=== PATIENT | male | born 1980 | race Caucasian/White ===

== ENCOUNTER 2021-03-14 06:34 | Outpatient (REF) | payer BC, SELFPAY ==
[2021-03-14 11:16] LABS: MANUAL DIFF FLAG NO
[2021-03-14 11:22] LABS: Basophils Percent Auto 0.3 % (0-2); Eosinophils Absolute Auto 0.3 X10*3/uL (0.0-0.4); Eosinophils Percent Auto 4.6 % (0-4); Hematocrit 47.7 % (42-52); Hemoglobin 17.2 g/dl (14.0-18.0); Imm Gran Abs Auto 0.01 X10*3/uL (0.00-0.03); Imm Gran Pct Auto 0.2 % (0.0-0.4); Lymphocytes Absolute Auto 2.6 X10*3/uL (1.2-4.9); Lymphocytes Percent Auto 42.6 % (20-40); Mean Corpuscular HGB Conc 36.1 g/dl (31.0-36.0); Mean Corpuscular Hemoglobin 32.6 pg (27.0-33.0); Mean Corpuscular Volume 90.5 fL (80-98); Mean Platelet Volume 10.1 fL (9.4-12.4); Monocytes Absolute Auto 0.5 X10*3/uL (0.1-1.2); Monocytes Percent Auto 7.7 % (2-11); Neutrophils Absolute Auto 2.7 X10*3/uL (2.0-8.3); Neutrophils Percent Auto 44.6 % (45-73); Platelet Count 178 X10*3/uL (160-400); Red Blood Count 5.27 X10*6/uL (4.60-5.80); Red Cell Distribution Width 11.9 % (11.0-16.0); White Blood Count 6.1 X10*3/uL (4.8-10.8)
[2021-03-14 11:43] LABS: Alanine Aminotransferase 30 U/L (0-40); Albumin Level 4.6 g/dL (3.5-5.0); Alkaline Phosphatase 72 U/L (39-117); Anion Gap 16 (12-20); Aspartate Amino Transferase 29 U/L (5-37); Blood Urea Nitrogen 16 mg/dL (9-16); Calcium 9.3 mg/dL (8.4-10.2); Carbon Dioxide 24 mmol/L (22-29); Chloride 104 mmol/L (96-108); Cholesterol 170 mg/dL; Estimated Glomerular Filt Rate > 60; Glucose Fasting 74 mg/dL (60-99); HDL Cholesterol 42 mg/dL; LDL Cholesterol Calculated 99 mg/dl; Potassium 3.7 mmol/L (3.3-5.1); Sodium 140 mmol/L (135-145); Total Protein 6.9 g/dL (6.5-8.0); Triglycerides 145 mg/dL
[2021-03-14 11:54] LABS: Thyroid Stimulating Hormone 2.27 uIU/mL (0.32-4.0)
[2021-03-17 21:47] LABS: Lamotrigine Lamictal 9.2 mcg/mL (4.0-18.0)
== END 2021-03-14 06:35 | disposition home or self-care (01) ==
LOC: HO.HMGCLDS 06:34
PROVIDERS: PCP Internal Medicine; Visit Provider Internal Medicine
DX: Z00.00 Encounter for general adult medical examination without abnormal findings (principal); G40.909 Epilepsy, unspecified, not intractable, without status epilepticus; Z91.09 Other allergy status, other than to drugs and biological substances
CPT/HCPCS: 36415; 80053; 80061; 80175; 84443; 85025

== ENCOUNTER → 2021-09-15 09:44 | Outpatient (BNVA) | payer BC, SELFPAY | PROVIDERS: PCP Internal Medicine; Visit Provider Surgery ==

== ENCOUNTER 2021-11-07 12:20 | Outpatient (REF) | payer BC, SELFPAY ==
[2021-11-07 14:02] LABS: MANUAL DIFF FLAG NO
[2021-11-07 14:12] LABS: Basophils Percent Auto 0.3 % (0-2); Eosinophils Absolute Auto 0.2 X10*3/uL (0.0-0.4); Hematocrit 47.8 % (42.0-52.0); Imm Gran Abs Auto 0.01 X10*3/uL (0.00-0.03); Imm Gran Pct Auto 0.1 % (0.0-0.4); Lymphocytes Absolute Auto 2.2 X10*3/uL (1.2-4.9); Lymphocytes Percent Auto 31.4 % (20-40); Mean Corpuscular HGB Conc 35.6 g/dl (31.0-36.0); Mean Platelet Volume 10.2 fL (9.4-12.4); Monocytes Absolute Auto 0.4 X10*3/uL (0.1-1.2); Monocytes Percent Auto 5.5 % (2-11); Neutrophils Absolute Auto 4.1 x10*3/uL (2.0-8.3); Neutrophils Percent Auto 59.7 % (45-73); Platelet Count 178 X10*3/uL (160-400); Red Blood Count 5.31 X10*6/uL (4.60-5.80); Red Cell Distribution Width 11.9 % (11.0-16.0); White Blood Count 6.9 X10*3/uL (4.8-10.8)
[2021-11-07 14:25] LABS: Alanine Aminotransferase 32 U/L (0-40); Albumin Level 4.5 g/dL (3.5-5.0); Alkaline Phosphatase 69 U/L (39-117); Anion Gap 11 (12-20); Aspartate Amino Transferase 23 U/L (5-37); Bilirubin Total 0.7 mg/dL (0.0-1.0); Blood Urea Nitrogen 13 mg/dL (9-16); Calcium 9.5 mg/dL (8.4-10.2); Carbon Dioxide 29 mmol/L (22-29); Chloride 102 mmol/L (96-108); Estimated Glomerular Filt Rate > 60; Glucose Random 94 mg/dL (60-115); Sodium 138 mmol/L (135-145); Total Protein 7.1 g/dL (6.5-8.0)
[2021-11-08 06:26] LABS: Triiodothyronine T3 Free 3.5 pg/mL (2.3-4.2)
== END 2021-11-07 12:21 | disposition home or self-care (01) ==
LOC: HO.HMGCLDS 12:20
PROVIDERS: Visit Provider Internal Medicine
DX: I10 Essential (primary) hypertension (principal)
CPT/HCPCS: 36415; 80053; 84439; 84443; 84481; 85025

== ENCOUNTER → 2021-11-17 09:28 | Outpatient (REF) | payer BC, SELFPAY ==
--- NOTE | 2021-11-17 09:30 | ECG_ITS ---
Test Reason : HTN Blood Pressure : / mmHG Vent. Rate : 086 BPM Atrial Rate : 086 BPM P-R Int : 162 ms QRS Dur : 094 ms QT Int : 344 ms P-R-T Axes : 082 096 049 degrees QTc Int : 411 ms Normal sinus rhythm with sinus arrhythmia Rightward axis Borderline ECG No previous ECGs available Referred By: Stone Rodriguez Electronically Signed By:ANDREW BURNETT MD
--- NOTE | 2021-11-17 09:30 | CA_ITS ---
Transthoracic Echocardiogram Patient (Last, First, Middle): Saroj Regan, Gender: Male Date of : 1980 Age: 41 Procedure Date: 11/17/2021 Procedure Type: Transthoracic Echocardiogram Location: OP Height: 175.26 cm Weight: 78.02 kg BSA: 1.94 m2 Heart Rate: bpm BP: 142 / 90 mmHg Sleeve Wheel Maker: VH/OT Referring MD: Stone Rodriguez MD, DO Academic Services Professional: Dylan Barkley MD Symptoms: I10 HTN Study Quality: Good ECG Rhythm: Sinus Conclusions: - Normal study Findings Left Ventricle Normal left ventricular size, thickness, and systolic function. The visually estimated ejection fraction is between 60-65%. Spectral Doppler is indicative of a normal filling pattern. Right Ventricle Normal right ventricular cavity size and systolic function. Atria Both atria are normal in size. There is lipomatous hypertrophy of the interatrial septum. There is no evidence of interatrial shunt. Aortic Valve Normal aortic valve structure and function. There is no aortic valve stenosis. There is no aortic valve regurgitation. Mitral Valve Normal mitral valve structure and function. There is trace mitral valve regurgitation. There is no mitral valve stenosis. Pulmonic Valve The pulmonic valve is likely normal. Tricuspid Valve Normal tricuspid valve structure. There is trace tricuspid valve regurgitation. There is no evidence of pulmonary hypertension. Great Vessels All visible segments of the aorta are normal in size. The pulmonary artery was not well visualized. Venous The inferior vena cava is normal in size and collapses greater than 50% with inspiration. Pericardium/Pleural There is no evidence of pericardial effusion. Prior Study Comparison No prior study available for comparison. Measurements 2D Linear Measurements IVSd: 1.04 0.6-0.9/0.6-1.0 cm LVIDd: 4.62 3.9-5.3/4.2-5.9 cm LVIDd Index: 2.38 2.4-3.2/2.2-3.1 cm/m2 LVIDs: 2.67 2.0-3.6 cm LVPWd: 0.97 0.7-1.1 cm LA Diam: 3.70 2.7-3.8/3.0-4.0 cm LAIDs Index: 1.91 1.5-2.3 cm/m2 LV Mass: 200.54 67-162/88-224 g LV Mass Index: 103.37 43-95/49-115 g/m2 LVOT Diam: 2.00 3.0+(-)1.3 cm Mitral Valve MV Pk E: 0.74 MV PK A: 0.46 MV Decel Time: 124.00 E/A: 1.60 E'Lateral: 12.20 E'Medial: 9.57 E/E' Med: 7.70 E/E' Lat: 6.00 PHT: 37.00 MVA PHT: 5.95 Decel Nobles: 5.95 Aortic Valve AoV Pk Tuan: 1.35 AoV Mn Tuan: 0.91 AoV VTI: 0.27 AoV Pk Grad: 7.00 Aov Mn Grad: 4.00 ORI Cont.VTI: 2.80 LVOT LVOT Pk Tuan: 1.29 LVOT Mn Tuan: 0.80 LVOT VTI: 0.24 LVOT Pk Grad: 7.00 LVOT Mn Grad: 3.00 LVOT Diam: 2.00 LVOT Area: 3.14 Diastolic Function MV Pk E: 0.74 MV Pk A: 0.46 E/A: 1.60 E'Medial: 9.57 E/E' Med: 7.70 E' Laterial: 12.20 E/E' Lat: 6.00 Right Ventricle TAPSE (mm): 16.00 TVS' Tuan: 13.00 Tricuspid Valve TR Pk Tuan: 1.97 TR Pk Grad: 16.00 RA Press: 3.00 RVSP: 19.00 Great Vessels Aorta Ao Asc: 3.10 2.1-3.4 cm Pulmonary Valve PV Pk Tuan: 0.96 Peak PV Grad: 4.00 Updated in Other Vendor System with Status of Final Dylan Barkley MD electronically signed on 11/19/2021 10:39:53 AM with status of Final
== END ==
LOC: HO.CARD 09:28
PROVIDERS: PCP Internal Medicine; Visit Provider Internal Medicine
DX: I10 Essential (primary) hypertension (principal)
CPT/HCPCS: 93005; 93306

== ENCOUNTER 2022-05-01 13:56 | Outpatient (REF) | payer BC, SELFPAY ==
--- NOTE | ~2022-05-01 | XR_ITS ---
EXAMINATION: LEFT TIBIA-FIBULA AND LEFT ANKLE. CLINICAL INFORMATION: Stable left lower leg COMPARISON: None TECHNIQUE: 2 views left tibia and fibula and left ankle 3 views. FINDINGS: Left ankle: There is a no visible acute fracture, dislocation or subluxation. The ankle mortise and subtalar joints are normal. Left foot: There is no visible fracture or bony abnormality. The soft tissues are normal. XR/XR tibia fibula LT 2V IMPRESSION: Unremarkable left ankle and left foot exam.
--- NOTE | ~2022-05-01 | XR_ITS ---
EXAMINATION: LEFT TIBIA-FIBULA AND LEFT ANKLE. CLINICAL INFORMATION: Stable left lower leg COMPARISON: None TECHNIQUE: 2 views left tibia and fibula and left ankle 3 views. FINDINGS: Left ankle: There is a no visible acute fracture, dislocation or subluxation. The ankle mortise and subtalar joints are normal. Left foot: There is no visible fracture or bony abnormality. The soft tissues are normal. XR/XR ankle LT min 3V IMPRESSION: Unremarkable left ankle and left foot exam.
== END 2022-05-01 13:57 | disposition home or self-care (01) ==
LOC: HO.HMGCX 13:56
PROVIDERS: PCP Internal Medicine; Visit Provider Physician Assistant
DX: M79.662 Pain in left lower leg (principal); M25.472 Effusion, left ankle
CPT/HCPCS: 73590; 73610

== ENCOUNTER 2023-04-17 12:17 | Outpatient (REF) | payer BC, SELFPAY ==
--- NOTE | ~2023-04-17 | XR_ITS ---
EXAMINATION: XR FINGER, RIGHT CLINICAL INFORMATION: Injury of right little finger COMPARISON: None available. TECHNIQUE: Three views of the right small finger. FINDINGS: Mildly displaced intra-articular fracture involving the fifth distal phalanx along its proximal dorsal metadiaphysis. Overlying soft tissue swelling. Joint spaces and alignment are otherwise maintained. XR/XR finger RT min 2V IMPRESSION: 1. Mildly displaced intra-articular fracture involving the fifth distal phalanx along its proximal dorsal metadiaphysis. 2. Overlying soft tissue swelling.
== END 2023-04-17 12:18 | disposition home or self-care (01) ==
LOC: HO.HMGCX 12:17
PROVIDERS: PCP Internal Medicine; Visit Provider Internal Medicine
DX: S69.91XA Unspecified injury of right wrist, hand and finger(s), initial encounter (principal); X58.XXXA Exposure to other specified factors, initial encounter; Y93.9 Activity, unspecified; Y92.9 Unspecified place or not applicable; Y99.9 Unspecified external cause status
CPT/HCPCS: 73140

== ENCOUNTER 2024-01-07 10:22 | Outpatient (AMB) | payer BC, SELFPAY ==
--- NOTE | 2024-01-07 10:25 | MHC.OFFVIS ---
Vital Signs 01/07/24 10:35 Height 5 ft 9.25 in Weight 184 lb 8 oz BMI 27.0 BP 166/93 H Blood Pressure Location Lt brachial Position Sitting Pulse 77 Intake Visit Reasons: Paronychia Intake Note: Patient is seen in office for evaluation and treatment of paronychia. 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 He denies any pain, redness or discharge associated with the lesion. The lesion is located in the distal phalanx of the index finger. He subsequently developed a deformity in the nail bed. He presents today to have this lesion drained. He denies any fever, chills, or associated systemic symptoms. He denies any history of trauma to the right index finger. [facility] Surgical History History of surgical procedure on mouth Social History Alcohol intake: current Patient Tobacco Use Status: Never used Tobacco Review of Systems Const All systems reviewed & are unremarkable except as noted in HPI and below Denies chills, Denies fever(s), Denies headache(s), Denies poor appetite and Denies weakness ENT Denies headache(s) Card Denies chest pain, Denies irregular heart rhythm, Denies palpitations and Denies dyspnea Resp Denies cough, Denies excessive phlegm production and Denies dyspnea GI Denies abdominal pain, Denies bloating, Denies change in bowel habits, Denies constipation, Denies heartburn, Denies diarrhea, Denies nausea and Denies vomiting Denies difficulty urinating and Denies urinary frequency Musc Denies back pain, Denies muscle weakness and Denies numbness Skin/Breast Denies changing lesions and Denies unusual bruising Neuro Denies headache(s), Denies numbness, Denies paresthesias and Denies weakness Psych Denies anxiety and Denies depression Endo Denies palpitations Ladarius/Lymph Denies lymphadenopathy Physical Exam Const General: cooperative and no acute distress Nutritional Appearance: well nourished Orientation/consciousness: patient oriented x3 Limitations: no limitations HEENT Head: Yes normocephalic and Yes atraumatic Ears: hearing grossly normal bilaterally Resp Effort & Inspection: normal respiratory effort, no audible wheezes, no cough and no respiratory distress Cardio Jugular venous distension: no JVD GI Inspection: Yes normal to inspection Skin Other: Warm, dry, no rash. Right index finger with a 4 mm raised hard, nonmobile lesion in the distal phalanx as noted below. No redness or fluctuance is appreciated. This does not appear to be consistent with a paronychia but may actually be either a ganglion, nevus or warty lesion. Neoplasm is also a possibility. Neuro General: patient oriented x3 Extrem Other: Right index finger, distal phalanx. Note nail deformity: General: Yes no clubbing, cyanosis or edema Hand/finger images: 1. right hand site of skin lesion Assessment & Plan Assessment & Plan (1) Finger mass, right: Code(s): R22.31 - Localized swelling, mass and lump, right upper limb Category: Medical Plan 43-year-old male patient with a raised hard lesion of the right index finger not clearly a paronychia. I would not recommend incision and drainage of this lesion but rather would suggest further evaluation by hand surgery. The patient expressed understanding and agrees with the plan. A referral has been sent to Dr. Hayes for further evaluation. Orders: Referrals Hand Surgery Referral R22.31 - Localized swelling, mass and lump, right upper limb Coding Level of Care Code Est Pt Level 3 (64880) Diagnoses Finger mass, right R22.31
[2024-01-07 10:35] VITALS: BP 166/93; PULSE 77; BMI 27.0
== END 2024-01-07 10:43 | disposition home or self-care (01) ==
PROVIDERS: PCP Internal Medicine; Referring Provider Internal Medicine; Visit Provider Surgery
DX: R22.31 Localized swelling, mass and lump, right upper limb (principal)
CPT/HCPCS: 99213

== ENCOUNTER → 2024-01-07 10:22 | Outpatient (BNVA) | payer BC, SELFPAY | PROVIDERS: PCP Internal Medicine; Referring Provider Internal Medicine; Visit Provider Surgery ==

== ENCOUNTER 2024-02-12 10:00 | Outpatient (AMB) | payer BC, SELFPAY ==
--- NOTE | 2024-02-12 10:04 | MHC.OFFVIS ---
Intake Visit Reasons: Localized swelling,mass and lump,right upper limb Intake Note: Saroj 43 year old right hand dominant male presents today for a new patient visit for his right hand mass. Patient reports that he has had a lump on his right pointer finger for about 4 months now. It has gradually increased in size. This is not painful. Denies numbness and tingling. He was seen with Dr. Clayton who referred to hand surgery as he could not remove. Allergies penicillin G [PENICILLIN G] Allergy (Unknown, Verified 01/07/24 10:34) HIVES penicillin V Allergy (Unknown, Verified 01/07/24 10:34) urticaria HPI HPI Localized swelling,mass and lump,right upper limb: Details: Saroj is a 43 year old right hand dominant man who presents to discuss a right index finger mass. He complains of a mass on the back of his left index finger, near his nail. He says this has been present for ~4 months and has somewhat increased in size. He denies any pain, redness, or drainage. He denies any numbness, tingling, injury, or prior treatment. 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 He wants to know about work restrictions or time off if he has surgery. 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 Review of Systems Const All systems reviewed & are unremarkable except as noted in HPI and below Physical Exam Const General: cooperative, healthy appearing and no acute distress Orientation/consciousness: patient oriented x3 HEENT Head: Yes normocephalic and Yes atraumatic Eyes EOM: EOMs intact bilaterally Resp Effort & Inspection: normal respiratory effort and able to speak in complete sentences Cardio Jugular venous distension: no JVD Skin General skin exam: turgor normal Rashes: no rashes Neuro General: patient oriented x3 Extrem Other: Evaluation of Right Upper Extremity: The patient is alert, oriented, and in no acute distress Neuro: Median, Ulnar, Radial nerves motor and sensory intact and sensation is normal to the tips of all digits Vascular: Cap refill brisk ROM: He can make a fist and extend all his digits No locking or catching Skin: No lacerations or abrasions. General: No Ecchymosis. No Erythema or evidence of infection. There is a mass on the dorsal aspect of the index finger, just distal to the DIP joint. This measures ~3mm in diameter, and is just proximal to the eponychial fold. Ridging of the nail distal to the mass noted. This is most consistent with a mucous cyst. Psych Appearance: grossly normal Affect: normal affect Attitude: cooperative Assessment & Plan Assessment & Plan (1) Ganglion cyst of finger of right hand: Code(s): M67.441 - Ganglion, right hand Category: Medical Plan Assessment & Plan: 1. Right index finger mucous cyst Measuring ~3mm in diameter, just distal to the DIP joint I educated him about this condition I discussed operative and non-operative treatment options The patient would like to proceed with surgery The risks and benefits of operative treatment were discussed with the patient and the patient wishes to proceed with surgery. These risks include, but are not limited to risk of damage to blood vessels, nerves, tendons, infection, recurrence, incomplete relief of preoperative symptoms, persistent pain, possible need for further surgery and the risks associated with regional blocks and anesthesia. The plan is to take the patient to the operating room sometime in the next few weeks for the following procedures: 1. Right index finger excision of mass, under local All of the preoperative paperwork including the consent was reviewed today. All the patient's questions were answered. The patient understands that they will be contacted by our oral surgery physician soon to schedule this procedure. He would like this done at the end of the summer as he plays in a summer baseball league He denies Diabetes, blood thinners, asthma, heart, lung, kidney issues Dr. Hayes addendum: The patient was seen and evaluated with me, and the treatment plan formulated by me. I agree with the assessment and plan. Scribed for Katia Hayes MD by Ilya Gotti, medical reviewer, on 02/12/24 at 10:50 AM, EST. Coding Level of Care Code New Pt Level 4 (38156) Diagnoses Ganglion cyst of finger of right hand M67.441 Time Spent (min) 25
== END 2024-02-12 16:09 | disposition home or self-care (01) ==
PROVIDERS: PCP Internal Medicine; Visit Provider Orthopaedic Surgery
DX: M67.441 Ganglion, right hand (principal)
CPT/HCPCS: 99204

== ENCOUNTER → 2024-02-12 10:00 | Outpatient (BNVA) | payer BC, SELFPAY | PROVIDERS: PCP Internal Medicine; Visit Provider Orthopaedic Surgery ==

== ENCOUNTER 2024-02-18 08:09 | Outpatient (REF) | payer BC, SELFPAY ==
[2024-02-18 10:31] LABS: MANUAL DIFF FLAG NO
[2024-02-18 10:48] LABS: Basophils Percent Auto 0.4 % (0-2); Eosinophils Absolute Auto 0.2 X10*3/uL (0.0-0.4); Eosinophils Percent Auto 3.8 % (0-4); Hematocrit 46.5 % (42.0-52.0); Hemoglobin 16.8 g/dl (14.0-18.0); Imm Gran Abs Auto 0.04 X10*3/uL (0.00-0.03); Imm Gran Pct Auto 0.7 % (0.0-0.4); Lymphocytes Absolute Auto 1.9 X10*3/uL (1.2-4.9); Lymphocytes Percent Auto 34.2 % (20-40); Mean Corpuscular HGB Conc 36.1 g/dl (31.0-36.0); Mean Corpuscular Hemoglobin 32.4 pg (27.0-33.0); Mean Corpuscular Volume 89.8 fL (80.0-98.0); Monocytes Absolute Auto 0.4 X10*3/uL (0.1-1.2); Monocytes Percent Auto 7.8 % (2-11); Neutrophils Absolute Auto 2.9 x10*3/uL (2.0-8.3); Neutrophils Percent Auto 53.1 % (45-73); Platelet Count 186 X10*3/uL (160-400); Red Blood Count 5.18 X10*6/uL (4.60-5.80); White Blood Count 5.5 X10*3/uL (4.8-10.8)
[2024-02-18 11:19] LABS: Prostate Specific Antigen 1.85 ng/mL (<0.05-4.0)
[2024-02-18 11:28] LABS: Alanine Aminotransferase 31 U/L (0-40); Albumin Level 4.4 g/dL (3.5-5.0); Alkaline Phosphatase 76 U/L (39-117); Anion Gap 11 (12-20); Aspartate Amino Transferase 29 U/L (5-37); Bilirubin Total 0.7 mg/dL (0.0-1.0); Calcium 9.2 mg/dL (8.4-10.2); Carbon Dioxide 28 mmol/L (22-29); Chloride 104 mmol/L (96-108); Cholesterol 151 mg/dL (<200); Estimated Glomerular Filt Rate > 60; Glucose Fasting 93 mg/dL (60-99); HDL Cholesterol 42 mg/dL (>40); LDL Cholesterol Calculated 90 mg/dL (<100); Potassium 4.3 mmol/L (3.3-5.1); Sodium 139 mmol/L (135-145); Total Protein 7.2 g/dL (6.5-8.0); Triglycerides 99 mg/dL (<150)
[2024-02-18 11:41] LABS: Thyroid Stimulating Hormone 2.33 uIU/mL (0.32-4.0); Vitamin D 25-OH Total 68.9 ng/mL (>30)
[2024-02-18 11:50] LABS: Blood Urea Nitrogen 16 mg/dL (9-16)
== END 2024-02-18 08:10 | disposition home or self-care (01) ==
LOC: HO.HMGCLDS 08:09
PROVIDERS: PCP Internal Medicine; Visit Provider Internal Medicine
DX: Z00.00 Encounter for general adult medical examination without abnormal findings (principal); G40.909 Epilepsy, unspecified, not intractable, without status epilepticus; Z91.09 Other allergy status, other than to drugs and biological substances; Z12.5 Encounter for screening for malignant neoplasm of prostate
CPT/HCPCS: 36415; 80053; 80061; 82306; 84153; 84443; 85025

== ENCOUNTER 2024-06-09 08:37 | Outpatient (AMB) | payer BC, SELFPAY ==
--- NOTE | 2024-06-09 08:40 | A.OFFVIS_ITS ---
Vital Signs 06/09/24 08:42 Height 5 ft 9.25 in Weight 184 lb BMI 27.0 Intake Visit Reasons: Pre-Rt IF Cyst Exc, DOS 06/15/24 Intake Note: Saroj is a 44 yo right hand dominant male who presents today preoperatively for a right index finger cyst excision scheduled for 06/25/[address] Hayes. Consent signed in office today. Allergies penicillin G [PENICILLIN G] Allergy (Unknown, Verified 06/09/24 08:42) HIVES penicillin V Allergy (Unknown, Verified 06/09/24 08:42) urticaria HPI HPI Pre-Rt IF Cyst Exc, DOS 06/15/24: Details: Saroj is a 43 year old right hand dominant man who returns to discuss his right index finger ganglion cyst He complains of a mass on the back of his left index finger, near his nail. He says this has been present for ~7 months and says this increased in size this summer, but recently has shrunk in size in the last few weeks. He denies any pain, redness, or drainage. He denies any numbness, tingling, injury, or prior treatment. 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 He wants to know about work restrictions or time off if he has surgery. 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 This measures ~3mm in diameter, however this is now much softer and almost flat at this time, just proximal to the eponychial fold. Longitudinal Ridging of the nail distal to the mass noted. This is most consistent with a mucous cyst. Assessment & Plan Assessment & Plan (1) Ganglion cyst of finger of right hand: Code(s): M67.441 - Ganglion, right hand Category: Medical Plan Assessment & Plan: 1. Right index finger mucous cyst Measuring ~3mm in diameter, just distal to the DIP joint Causing ridging of the nail It has decreased in size over the last month. I educated him about this condition I discussed operative and non-operative treatment options That patient is unsure if he wants to proceed with surgery at this time, as he is busy in his personal & professional life at this time. 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 He is expecting a sometime in November. He would like to reschedule his surgery from 06/15/24 to sometime at the beginning of September. He is all for winter break in the month of September. If this continues to shrink he may cancel this appointment. He will follow up in late August to see how he is doing, and to discuss treatment options. If this continues to shrink then we may not proceed with surgery. Scribed for Katia Hayes MD by Ilya Gotti, medical communication specialist, on 06/09/24 at 8:50 AM, EST. Coding Level of Care Code Est Pt Level 3 (46094) Diagnoses Ganglion cyst of finger of right hand M67.441
[2024-06-09 08:42] VITALS: BMI 27.0
== END 2024-06-09 09:15 | disposition home or self-care (01) ==
PROVIDERS: PCP Internal Medicine; Visit Provider Orthopaedic Surgery
DX: M67.441 Ganglion, right hand (principal)
CPT/HCPCS: 99024

== ENCOUNTER → 2024-06-09 08:37 | Outpatient (BNVA) | payer BC, SELFPAY | PROVIDERS: PCP Internal Medicine; Visit Provider Orthopaedic Surgery ==

== ENCOUNTER 2024-08-18 13:38 | Outpatient (AMB) | payer BC, SELFPAY ==
--- NOTE | 2024-08-18 13:41 | A.OFFVIS_ITS ---
Intake Visit Reasons: Preop RT IF Cyst Exc 09/17/24 AR Intake Note: Saroj is a 44 year old right hand dominant male who presents to the office today for a Pre-op RT IF Cyst Exc 09/17/24 AR. Allergies penicillin G [PENICILLIN G] Allergy (Unknown, Verified 08/18/24 13:41) HIVES penicillin V Allergy (Unknown, Verified 08/18/24 13:41) urticaria HPI HPI Preop RT IF Cyst Exc 09/17/24 AR: Details: Patient is a 41 presents preoperative evaluation for right index finger mucous cyst excision, DOS scheduled for 09/17/2024. Today, the patient reports that he does still have a significant indentation in the finger nail of the right index finger, but states that the cyst itself does appear to have resolved temporarily. Patient reports no area of swelling on the right index finger at this time. Of note, patient does report that he is experiencing very significant pain in his right elbow, after he feels he may have aggravated it while weightlifting. The patient states that this exacerbated with pronation and supination range of motion of the right wrist. Denies any numbness or tingling right hand. No other acute complaints or concerns at this time. 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 Longitudinal Ridging of the nail distal to the mass noted. Right elbow exam Right elbow normal to inspection No erythema, edema, ecchymosis noted No lacerations, abrasions, open areas, evidence of infection Patient reports tenderness to palpation of the lateral epicondyle of the right elbow No tenderness to palpation of the medial epicondyle, olecranon process, radial head, or elsewhere in the right elbow Range of motion of the right elbow full and intact Pronation and supination full and intact Positive Cozen's test on the right Assessment & Plan Assessment & Plan (1) Lateral epicondylitis of right elbow: Code(s): M77.11 - Lateral epicondylitis, right elbow Category: Medical (2) Ganglion cyst of finger of right hand: Code(s): M67.441 - Ganglion, right hand Category: Medical Plan Assessment & Plan: 1. Right index finger mucous cyst Measuring ~3mm in diameter, just distal to the DIP joint at peak, currently resolved Causing ridging of the nail It has decreased in size over the last few months. I educated him about this condition I did informed the patient it was visit today that due to the fact that we can not clearly see where this mass is at this time, we can not perform operative intervention for removal, as there is no way to know if we got the entire cyst and it could lead to increased risk of recurrence' Patient states understanding of this Patient will follow-up with us when he feels the cyst has increased in size to the point where we will be able to perform operative intervention, sooner with any acute concerns 2. lateral epicondylitis of right elbow At this time, patient was referred for occupational therapy for treatment of his lateral epicondylitis of his right elbow Patient was amenable to this plan Patient was advised on conservative pain management measures, such as rest, ice, elevation, and [id number] pain medication as needed for pain management If patient does not experience relief after 6-8 weeks of occupational therapy, he can call our office for discussion of further treatment options, including but not limited to steroid injection Patient was amenable to this plan Scribed for Katia Hayes MD by Ilya Gotti medical device sales representative, on 06/09/24 at 8:50 AM, EST. Orders: Orders OT Evaluation and Treatment Today M77.11 - Lateral epicondylitis, right elbow Coding Level of Care Code Est Pt Level 3 (45377) Diagnoses Lateral epicondylitis of right elbow M77.11 Ganglion cyst of finger of right hand M67.441
--- OUTSIDE RECORDS SUMMARY | 2024-08-19 21:44 | XMS_ITS | Patient Health Record ---
Author Organization Stone Rodriguez DO, FACP Address [address], [place] [id number] Care Team Providers Care Director Consumer Affairs Name Role Phone Stone Rodriguez Primary Care Provider ALLERGIES Allergen (clinical drug ingredient) Drug/Non Drug Allergy documented on EMR Reaction Allergy Type Onset Date Status penicillin V Penicillin V Potassium urticaria Drug Allergy Active RESULTS Component Value Reference Range Notes Complete Blood Count Auto Di ff Reviewed date:02/18/2024 11:25:02 AM Interpretation:Normal Performing Lab:[facility], [address] [place] [phone] Notes/Report: White Blood Count 5.5 4.8-10.8 X10*3/uL Red Blood Count 5.18 4.60-5.80 X10*6/uL Hemoglobin 16.8 14.0-18.0 g/dl Hematocrit 46.5 42.0-52.0 % Mean Corpuscular Volume 89.8 80.0-98.0 fL Mean Corpuscular Hemoglobin 32.4 27.0-33.0 pg Mean Corpuscular HGB Conc 36.1 31.0-36.0 g/dl Red Cell Distribution Width 12.0 11.0-16.0 % Platelet Count 186 160-400 X10*3/uL Mean Platelet Volume 10.0 9.4-12.4 fL Neutrophils Percent Auto 53.1 45-73 % Imm Gran Pct Auto 0.7 0.0-0.4 % Lymphocytes Percent Auto 34.2 20-40 % Monocytes Percent Auto 7.8 2-11 % Eosinophils Percent Auto 3.8 0-4 % Basophils Percent Auto 0.4 0-2 % NRBC Pct Auto 0.0 0.0-0.2 /100WBC Neutrophils Absolute Auto 2.9 2.0-8.3 x10*3/u L Imm Gran Abs Auto 0.04 0.00-0.03 X10*3/uL Lymphocytes Absolute Auto 1.9 1.2-4.9 X10*3/u L Monocytes Absolute Auto 0.4 0.1-1.2 X10*3/uL Eosinophils Absolute Auto 0.2 0.0-0.4 X10*3/u L Basophils Absolute Auto 0.0 0.0-0.2 X10*3/uL NRBC Abs Auto 0.000 0.0-0.012 X10*3/uL Comprehensive Gillespie. Panel Fa st Reviewed date:02/18/2024 12:25:15 PM Interpretation:Normal Performing Lab:[facility], [address] [place] [phone] Notes/Report: Sodium 139 135-145 mmol/L Potassium 4.3 3.3-5.1 mmol/L Chloride 104 96-108 mmol/L Carbon Dioxide 28 22-29 mmol/L Anion Gap 11 12-20 Blood Urea Nitrogen 16 9-16 mg/dL Creatinine 1.16 0.5-1.4 mg/dL Estimated Glomerular Filt Rate > 60 NOTE: For -[place] individuals, multiply the result by 1.210. Chronic Kidney Disease: Estimated GFR < 60 mL/min/1.73m2 Severe Kidney Disease: Estimated GFR < 15 mL/min/1.73m2 Glucose Fasting 93 60-99 mg/dL Calcium 9.2 8.4-10.2 mg/dL Bilirubin Total 0.7 0.0-1.0 mg/dL Aspartate Amino Transferase 29 5-37 U/L Alanine Aminotransferase 31 0-40 U/L Total Protein 7.2 6.5-8.0 g/dL Albumin Level 4.4 3.5-5.0 g/dL Alkaline Phosphatase 76 39-117 U/L Lipid Panel Reviewed date:02/18/2024 12:25:15 PM Interpretation:Normal Performing Lab:[facility], [address] [place] [phone] Notes/Report: Triglycerides 99 <150 mg/dL Desirable Triglyceride: less than 150 mg/dL Borderline High Triglyceride 150-199 mg/dL High Triglyceride: 200-499 mg/dL Very High Triglyceride: greater than or equal to 5OO mg/dL Cholesterol 151 <200 mg/dL Desirable Cholesterol: less than 200 mg/dL Borderline High Cholesterol: 200-239 mg/dL High Cholesterol: greater than 239 mg/dL LDL Cholesterol Calculated 90 <100 mg/dL Desirable LDL: less than 100 mg/dL Near Optimal/Above Optimal LDL: 110-129 mg/dL Borderline High LDL: 130-159 mg/dL High LDL: 160-189 mg/dL Very High LDL: greater than or equal to 190 mg/dL HDL Cholesterol 42 >40 mg/dL Desirable HDL: greater than 40 mg/dL Note: This HDL assay may give artificially low results in patients with liver disease. Prostate Specific Antigen Reviewed date:02/18/2024 11:26:10 AM Interpretation:Normal Performing Lab:[facility], [address] [place] [phone] Notes/Report: Prostate Specific Antigen 1.85 <0.05-4.0 ng/mL PSA methodology: [employer] Alinity i Chemiluminescent Microparticle Immunoassay (CMIA) Vitamin D 25-OH Total Reviewed date:02/18/2024 12:25:15 PM Interpretation:Normal Performing Lab:[address] [phone] Notes/Report: Vitamin D 25-OH Total 68.9 >30 ng/mL Health Based Reference Values* < 20 ng/mL Deficient 20-30 ng/mL Insufficient > 30 ng/mL Sufficient *Edwige VILLAREAL. N Engl J Med. 2007;357:266-280 Care must be taken in interpreting Vitamin D results from different laboratories and methodologies. Published data demonstrated that results from patients undergoing hemodialysis may show a negative bias when tested with various automated 25-OH vitamin D assays when compared to LC-MS/MS. When testing samples from patients whose predominant form of Vitamin D is Vitamin D2, such as patients receiving Vitamin D2 supplementation, results that are subtherapeutic should be confirmed with another method such as LC-MS/MS. Thyroid Stimulating Hormone Reviewed date:02/18/2024 12:25:15 PM Interpretation:Normal Performing Lab:[facility], [address] [place] [phone] Notes/Report: Thyroid Stimulating Hormone 2.33 0.32-4.0 uIU/ mL TSH 3rd Generation ([facility]) REASON FOR REFERRAL Reason Paronychia Diagnosis 1 Encounter for genera l adult medical examination without abnormal findings (Z00.00) Referral Organization Stone Fernandez, [facility] Referring Provider First Name Stone Referring Provider Last Name Jennifer Referring Provider Speciality Internal M edicine Referred Provider Cameron Clayton Referred Provider Specialty Surgery General Notes Alison Rios 024 11:52:33 AM EDT > referral faxed; patient aware. Referral Priority Routine Referral Appointment Date 01/07/2024 MEDICATIONS Medication SIG (Take, Route, Fr equency, Duration) Notes Start Date End Date Status predniSONE 10 MG 4 tablets daily for 4 days, 3 for 3 days, 2 for 2 days, then 1 for 1 day Orally Once a day for 10 days 06/02/2024 Active ZyrTEC Allergy 10 MG 1 tablet Orally Once a day Active Multivitamin - 1 tablet Orally Once a day Active lamoTRIgine 25 MG 10 tablets Orally Twice a day Active IMMUNIZATIONS Vaccine Route Administration Date Status Comme nts TDaP IM Intramuscular 12/31/2018 Administered Influenza Quad IM Intramuscular 08/09/2020 Administered Influenza Quad Unknown 08/05/2019 Administered COVID-19 Moderna Vaccine Unknown 08/07/2021 Administere d COVID-19 Harlan (J/J) Unknown 12/15/2020 Administered COVID-19 Moderna Bivalent Unknown 06/11/2022 Administer ed Influenza Quad Unknown 06/11/2022 Administered SOCIAL HISTORY Tobacco Use: Social History Observation Description Date Details (start date - stop date) Never Smoker NA - NA Sex Assigned At : Social History Observation Description Sex Assigned At Unknown Tobacco Use/Smoking Question Answer Notes Patient is a nonsmoker Additional Findings: Tobacco Non-User Cu rrent non-smoker, currently using no form of tobacco Alcohol Screen Question Answer Notes Did you have a drink contain ing alcohol in the past year? Yes How often did you have a dri nk containing alcohol in the past year? 2 to 3 times a week (3 points) How many drinks did you have on a typical day when you were drinking in the past year? 1 or 2 drinks (0 point) How often did you have 6 or more drinks on one occasion in the past year? Never (0 point) Points 3 Interpretation Negative PROBLEMS Problem Type ICD Code Onset Dates Problem Status W/U Status Risk SNOMED Code Notes Problem Seizure disorder (G40.909) Active confirmed 793776661 Problem Environmental allergies (Z91.09) Active confirmed 538180621 Problem Left inguinal hernia (K40.90) Active confirmed 828987481 Problem Primary hypertension (I10) Active confirmed 47619635 VITAL SIGNS Blood pressure diastolic 76 mm Hg 12/11/2023 Height 69.25 in 12/11/2023 Blood pressure systolic 118 mm Hg 12/11/2023 Weight 187 lbs 12/11/2023 BMI 27.41 kg/m2 12/11/2023 Encounters Encounter Location Date Provider Diagnosis Stone Rodriguez DO, [facility] [address], [place] [phone] 12/11/2023 Stone Rodriguez Encounter for genera l adult medical examination without abnormal findings Z00.00 ; Seizure disorder G40.909 and Environmental allergies Z91.09 Stone Rodriguez DO, [facility] [address], [place] [phone] 06/02/2024 Stone Rodriguez DO, [facility] [address], [place] [phone] 11/02/2023 Stone Rodriguez DO, [address] [phone] 02/18/2024 Stone Rodriguez ASSESSMENTS Encounter Date Diagnosis Assessment Notes Treatment Notes Treatment Clinical Notes 12/11/2023 Encounter for genera l adult medical examination without abnormal findings (ICD-10 - Z00.00) 12/11/2023 Seizure disorder (ICD-10 - G40.909) 12/11/2023 Environmental allergies (ICD-10 - Z91.09) PLAN OF TREATMENT Next Appt Details Provider Name:Stone Leigh Miryam rubio, 12/30/2024 09:00:00 AM, [address] [place] [address], [phone], Insurance Providers Payer Name Payer Address Payer Phone Subscriber Number Group Number Insured Name Patient Relationship to Insured Coverage Start Date Coverage End Date [employer] [address] [place], [place] [id number] [phone] [id number] Saroj Regan Self - patient is the insured MEDICAL (GENERAL) HISTORY Medical History History ICD Code seizure disorder allergies; 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
--- OUTSIDE RECORDS SUMMARY | 2024-08-19 21:44 | XMS_ITS ---
Author Organization Stone Rodriguez DO, [facility] Address [address], [place] [id number] Care Team Providers Care Patient Services Specialist Name Role Phone Stone Rodriguez Primary Care Provider [phone] REASON FOR VISIT Blood Test Results Encounters Encounter Location Date Provider Diagnosis Stone Rodriguez DO, [facility] [address] [place], [place] [phone] 02/18/2024 Stone Rodriguez PLAN OF TREATMENT Next Appt Details Provider Name:Stone rubio, 12/30/2024 09:00:00 AM, [address] [place], [place], [phone],
--- OUTSIDE RECORDS SUMMARY | 2024-08-19 21:44 | XMS_ITS ---
Author Organization Stone Rodriguez DO, [facility] Address [address], [place] [phone] Care Team Providers Care Polisher And Buffer Name Role Phone Stone Rodriguez Primary Care Provider [phone] REASON FOR VISIT Message MEDICATIONS Medication SIG (Take, Route, Fr equency, Duration) Notes Start Date End Date Status predniSONE 10 MG 4 tablets daily for 4 days, 3 for 3 days, 2 for 2 days, then 1 for 1 day Orally Once a day for 10 days 06/02/2024 Active Encounters Encounter Location Date Provider Diagnosis Stone Rodriguez DO, [facility] [address] [place] [phone] 06/02/2024 Stone Rodriguez PLAN OF TREATMENT Medication Medication Name Sig Start Date Stop Date Notes predniSONE 10 MG 4 tablets daily for 4 days, 3 for 3 days, 2 for 2 days, then 1 for 1 day Orally Once a day for 10 days 06/02/2024 Next Appt Details Provider Name:Stone rubio, 12/30/2024 09:00:00 AM, [address] [place], [place], [phone],
--- OUTSIDE RECORDS SUMMARY | 2024-08-19 21:44 | XMS_ITS ---
Author Organization Stone Rodriguez DO, FACP Address [address], [place] [phone] Care Team Providers Care Flight Operations Manager Name Role Phone Stone Rodriguez Primary Care Provider [phone] ALLERGIES Allergen (clinical drug ingredient) Drug/Non Drug Allergy documented on EMR Reaction Allergy Type Onset Date Status penicillin V Penicillin V Potassium urticaria Drug Allergy Active REASON FOR REFERRAL Reason Paronychia Diagnosis 1 Encounter for genera l adult medical examination without abnormal findings (Z00.00) Referral Organization Stone Amaya O, FACP Referring Provider First Name Stone Referring Provider Last Name Jennifer Referring Provider Speciality Internal M edicine Referred Provider Cameron Clayton Referred Provider Specialty Surgery General Notes Alison Rios 024 11:52:33 AM EDT > referral faxed; patient aware. Referral Priority Routine Referral Appointment Date 01/07/2024 REASON FOR VISIT physical, annual visit, Follow up seizure disorder MEDICATIONS Medication SIG (Take, Route, Fr equency, Duration) Notes Start Date End Date Status ZyrTEC Allergy 10 MG 1 tablet Orally Once a day Active Multivitamin - 1 tablet Orally Once a day Active lamoTRIgine 25 MG 10 tablets Orally Twice a day Active SOCIAL HISTORY Tobacco Use: Social History Observation [...] Never (0 point) Points 3 Interpretation Negative VITAL SIGNS BMI 27.41 kg/m2 12/11/2023 Blood pressure systolic 118 mm Hg 12/11/19 24 Blood pressure diastolic 76 mm Hg 024 Height 69.25 in 12/11/2023 Weight 187 lbs 12/11/2023 Encounters Encounter Location Date Provider Diagnosis Stone Mcknightman DO, FACP [address], [place] [phone] 12/11/2023 Stone Rodriguez Encounter for genera l adult medical examination without abnormal findings Z00.00 ; Seizure disorder G40.909 and Environmental allergies Z91.09 ASSESSMENTS Encounter Date Diagnosis Assessment Notes Treatment Notes Treatment Clinical Notes 12/11/2023 Encounter for genera l adult medical examination without abnormal findings (ICD-10 - Z00.00) 12/11/2023 Seizure disorder (ICD-10 - G40.909) 12/11/2023 Environmental allergies (ICD-10 - Z91.09) PLAN OF TREATMENT Medication Medication Name Sig Start Date Stop Date Notes ZyrTEC Allergy 10 MG 1 tablet Orally Once a day Multivitamin - 1 tablet Orally Once a day lamoTRIgine 25 MG 10 tablets Orally Twice a day Referrals Referral Date Details 01/07/2024 01/07/2024, Rebeka arthur, Cameron Clayton Next Appt Details Follow Up: 1 Year, Reason: H &P Provider Name:Stone Leihg Miryam an, 12/30/2024 09:00:00 AM, [address], [place], [phone], Progress Notes * Examination Category Sub-Category Detail Notes General Examination GENERAL APPEARANCE: well dev eloped, well nourished, in no acute distress HEAD: normocephalic, atrau matic EYES: pupils equal, round, reactive to light and accommodation, sclera non-icteric NECK/THYROID: neck supple, full ra nge of motion, no cervical lymphadenopathy, no carotid bruit , thyroid normal HEART: regular rate and rhy thm, S1, S2 normal, no murmurs LUNGS: clear to auscultatio n bilaterally ABDOMEN: soft, nontender, non distended, bowel sounds present, normal NEUROLOGIC: nonfocal, motor stre ngth normal upper and lower extremities, sensory exam intact SKIN: warm and dry EXTREMITIES: no edema, paronychia present, finger PERIPHERAL PULSES: 2+ dorsalis pedis, 2 + posterior tibial MALE GENITOURINARY no penile lesions or discharge, no testicular mass, testes descended bilaterally PSYCH: alert, oriented, cog nitive function intact History and Physical Notes * HPI (History of Present Illness) Category Sub-Category Detail Notes Depression Screening PHQ-9 Little inte rest or pleasure in doing things: Not at all Feeling down, depressed, or hopeless: No t at all Trouble falling or staying asleep, or sl eeping too much: Not at all Feeling tired or having little energy: N ot at all Poor appetite or overeating: Not at all Feeling bad about yourself o r that you are a failure, or have let yourself or your family down: Not at all Trouble concentrating on thi ngs, such as reading the newspaper or watching television: Not at all Moving or speaking so slowly that other people could have noticed; or the opposite, being so fidgety or restless that you have been moving around a lot more than usual: Not at all Thoughts that you would be b cat off or of hurting yourself in some way: Not at all Total Score: 0 Interpretation and Intervention Depression Magan cope Findings: Negative Follow-Up for Depression: : Review of PH Q-9 found negative result; no follow-up needed Fall Risk Fall History Have you had two or more fal ls in the past year?: No Have you had any falls with injury in th e past year?: No Fall Risk Assessment:: No falls in the p ast year Communication Needs PCMH Communication Needs - PCM He aring Impairment?: No Vision Impairment?: No Cognitive Impairment?: No SDOH Questions SDOH Questions In the past year have you been worried about losing your housing?: No In the past year have you or any family members you live with been unable to get any of the following when it was really needed? Check all that apply:: None Consultation Request Notes Referral Date Referring Provider Referred Provider Not 12/11/2023 Stone Rodriugez, Cameron Jimenez
== END 2024-08-18 14:06 | disposition home or self-care (01) ==
PROVIDERS: PCP Internal Medicine
DX: M77.11 Lateral epicondylitis, right elbow (principal); M67.441 Ganglion, right hand
CPT/HCPCS: 99213

== ENCOUNTER 2024-12-30 09:03 | Outpatient (AMB) | payer BC, SELFPAY ==
[2024-12-30 09:04] VITALS: BP 142/90; PULSE 92; RESP 14; TEMP 36.6; O2SAT 98; BMI 27.2
--- NOTE | 2024-12-30 09:04 | MHC.PC.OV ---
Vital Signs 12/30/24 09:04 Height 5 ft 9 in Weight 184 lb BMI 27.2 BP 142/90 H Respiration 14 Pulse 92 Pulse Source Pulse Oximeter Temp 97.9 F Temp Source Temporal Artery Scan Pulse Oximetry (%) 98 Oxygen Delivery Method Room Air Intake Visit Reasons: physical Greenhouse Staff Required: No Accompanied by: Self / Same As Patient Allergies penicillin G [PENICILLIN G] Allergy (Unknown, Verified 12/30/24 09:28) HIVES penicillin V Allergy (Unknown, Verified 12/30/24 09:28) urticaria Medication List - Last Reconciled 12/30/24 by Moira Batres PA-C cetirizine (Zyrtec) 10 mg PO DAILY PRN lamotrigine 250 mg PO BID multivitamin 1 tab PO DAILY Tobacco use date assessed: 12/30/24 Dental Screening Dental Screen Date: 12/30/24 Did you have a dental visit in the last 12 months?: Yes Did you have a dental problem in the last 6 months where you did not have access to dental care?: No Was dental information given to patient?: Patient has dentist HPI physical HPI Details The patient is a 44-year-old male presenting for an annual physical examination. A history of hypertension is noted, which was first elevated during a stressful period in 2021. He reports hypertension may be influenced by stress and reduced physical activity, as he had to reduce running due to prior glute strain and the recent of his second child. The patient is on lamotrigine for epilepsy without recent seizure activity and uses Zyrtec daily for allergic rhinitis. Labs from last year, including renal and liver function, lipids, thyroid, PSA, and vitamin levels, were normal. Social History - with two children; one and one school-age child. - Engages in physical activity such as running and baseball, although a recent glute strain has limited activity levels. - Manages ongoing stress due to family and work commitments. - Reports a healthy diet and generally good sleep patterns prior to his . [facility] Medical History (Updated 12/30/24 @ 10:11 by Moira Batres PA-C) Establishing care with new doctor, encounter for Tennis elbow Squamous papilloma of soft palate Allergies Seizure disorder Overweight with body mass index (BMI) of 27 to 27.9 in adult Elevated blood pressure reading Annual physical exam Vasectomy evaluation Surgical History History of surgical procedure on mouth Family History Father BP (high blood pressure) Mother BP (high blood pressure) Social History Housing: House Alcohol intake: current Alcohol intake frequency: holidays/special occasions only Patient Tobacco Use Status: Never used Tobacco service: No Current occupational status: employed 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 1. Little interest or pleasure in doing things: not at all 2. Feeling down, depressed, or hopeless: not at all 3. Trouble falling or staying asleep, or sleeping too much: not at all 4. Feeling tired or having little energy: not at all 5. Poor appetite or overeating: not at all 6. Feeling bad about yourself - or that you are a failure or have let yourself or your family down: not at all 7. Trouble concentrating on things, such as reading the newspaper or watching television: not at all 8. Moving or speaking so slowly that other people could have noticed. Or the opposite - being so fidgety or restless that you have been moving around a lot more than usual: not at all 9. Thoughts that you would be better off or of hurting yourself in some way: not at all Total score: 0 Depression Screening Interpretation: Negative Depression Screening Done: Yes 11895 - PHQ-9 Billing: Yes Source: Developed by Drs. Stone Osborne, Heidi Pitt, Derrick Lyles and colleagues, with an educational corrie from [employer] Thrive Questionnaire Date Thrive assessed: 12/30/24 I am a: Patient What is your living situation today?: I have a steady place to live Within the past 12 months, did the food you bought not last and you didn't have the money to get more?: Never true Within the past 12 months, did you worry whether your food would run out before you got money to buy more?: Never true Do you have trouble paying for medicines?: No Do you have trouble getting transportation to medical appointments?: No Do you have trouble paying your heating and electricity bill?: No Do you have trouble taking care of your child, family member or friend?: No Do you have trouble with day-to-day activities such as bathing, preparing meals, shopping, managing finances, etc.?: No Are you currently unemployed and looking for a job?: No Are you interested in more education?: No Please select the resources that you would like help with: None THRIVE Score: 0 AUDIT C Alcohol Use Questionnaire (AUDIT-C) 1. How often do you have a drink containing alcohol?: Monthly or less 2. How many drinks containing alcohol do you have on a typical day when you are drinking?: 1 or 2 3. How often do you have six or more drinks on one occasion?: Never Total Score: 1 Score Reviewed/Action Taken: No MANA-7 AMB Questionnaire MANA-7 Date MANA - 7 assessed: 12/30/24 Feeling nervous, anxious, or on edge: 0 = Not at all Not being able to stop or control worryin = Not at all Worrying too much about different things: 0 = Not at all Trouble relaxin = Not at all Being so restless that it is hard to sit still: 0 = Not at all Becoming easily annoyed or irritable: 0 = Not at all Feeling afraid as if something awful might happen: 0 = Not at all Total MANA-7 score (0-4 normal; 5-9 mild; 10-14 moderate; 15-21 severe): 0 Source: Developed by Drs. Stone Osborne, Heidi Pitt, Derrick Lyles and colleagues, with an educational corrie from [employer]. MANA-7 Assessment Billing MANA-7 Assessment Tool: MANA-7 Assessment 51504 Review of Systems Const Details: - Cardiovascular: Denies dizziness, chest pain, shortness of breath, numbness. - Neurological: Denies seizures since starting lamotrigine. - Respiratory: Denies chronic cough. - Musculoskeletal: Reports recent history of glute strain and tennis elbow. - General: Reports fatigue due to sleep disturbances with . Eyes Denies dry eyes Physical exam (Primary Care) Vital Signs: Last Vital Signs Temp 97.9 F 12/30/24 09:04 Pulse 92 12/30/24 09:04 Resp 14 12/30/24 09:04 BP 142/90 H 12/30/24 09:04 Pulse Ox 98 12/30/24 09:04 Oxygen Delivery Method Room Air 12/30/24 09:04 Care Plan Goal for BP management: <130/90 BMI result Body Mass Index 27.2 BMI Assessment/Plan discussion: High BMI High, discussed plan: lifestyle, weight reduction, dietary, physical activity, alcohol moderation and other Tobacco/Smoking Status: Tobacco use Status Tobacco use date assessed 12/30/24 12/30/24 09:17 Patient Tobacco Use Status Never used Tobacco 12/30/24 09:17 PHQ-9: PHQ-9 Score PHQ-9: Total score 0 12/30/24 09:17 Depression Screening Interpretation: Negative Thrive Assessment: Date of Thrive Assessment Date Thrive assessed 12/30/24 12/30/24 09:17 Const Other: Appearance: Alert. Oriented X3. No acute distress. Head: Normal external exam. Normocephalic. Atraumatic. Eyes: Pupils are equal, round, and reactive to light. Extraocular movements intact. Conjunctiva and sclera normal. Eyelids normal. Ears: External auditory canal normal. Tympanic membranes normal. Throat: Pharynx normal. Uvula midline. Moist mucous membranes. Neck: Normal inspection. Neck supple. Full range of motion. No adenopathy. Thyroid Normal. No meningeal signs. No neck mass noted. Cardiovascular: Normal heart rate and rhythm. Heart sound normal. No murmurs noted. Pulses normal throughout. Heart rate was 92. Respiratory: No respiratory distress. Painless inspiration. Breath sounds normal. No wheezes/rales/rhonchi noted. Chest nontender. No accessory muscle usage noted or decreased air movement noted. Abdomen: Soft and nontender. No distention noted. No organomegaly noted. No visible injury noted. Back: No costovertebral angle tenderness. Full range of motion noted. Skin: Skin warm and dry. Normal skin color. Normal skin turgor. No rashes/lesions/lacerations noted. Extremities: No lower extremity edema. Extremities exhibit normal range of motion. Extremities nontender. Neuro: Oriented X 3. No motor deficit. No sensory deficit. Reflexes normal. Results Reviewed Results Reviewed: - Labs: Last year's CBC, kidney function, liver enzymes, cholesterol, vitamin D, and PSA were normal. Coding Level of Care Code Est Pt Level 4 (58330) Complex EM visit Add On G2211 Diagnoses Annual physical exam Z00.00 Vasectomy evaluation Z30.09 Overweight with body mass index (BMI) of 27 to 27.9 in adult E66.3; Z68.27 Elevated blood pressure reading R03.0 Allergies T78.40XA Seizure disorder G40.909 Tennis elbow M77.10 Establishing care with new doctor, encounter for Z76.89 Additional Codes PHQ-9 - 22640 - PHQ-9 Billing: Yes ([id number]) MANA-7 Assessment Billing - MANA-7 Assessment Tool: MANA-7 Assessment 54389 ([id number]) Assessment & Plan Assessment & Plan (1) Annual physical exam: Code(s): Z00.00 - Encounter for general adult medical examination without abnormal findings Category: Medical (2) Vasectomy evaluation: Code(s): Z30.09 - Encounter for other general counseling and advice on contraception Category: Medical Plan: Will refer to Urology for further evaluation for possible vasectomy. (3) Overweight with body mass index (BMI) of 27 to 27.9 in adult: Code(s): E66.3 - Overweight; Z68.27 - Body mass index [BMI] 27.0-27.9, adult Category: Medical Plan: Patient to continue improving his diet and exercise regimen to help with obesity and blood pressure. Condition is chronic and stable continue to monitor. (4) Elevated blood pressure reading: Code(s): R03.0 - Elevated blood-pressure reading, without diagnosis of hypertension Category: Medical Plan: The patient was advised to use a home blood pressure monitor regularly. Stress management and increased physical activity were discussed as possible interventions. Patient to return in 1 month. Condition is stable will continue to monitor. (5) Allergies: Code(s): T78.40XA - Allergy, unspecified, initial encounter Category: Medical Plan: Continues daily Zyrtec. Symptom control is satisfactory. Condition is chronic and stable continue to monitor. (6) Seizure disorder: Code(s): G40.909 - Epilepsy, unspecified, not intractable, without status epilepticus Category: Medical Plan: Continues on lamotrigine with good control. Follow-up with neurologist as scheduled. Condition is chronic and stable continue to monitor. (7) Tennis elbow: Code(s): M77.10 - Lateral epicondylitis, unspecified elbow Category: Medical Plan: Continue physical therapy. Current regimen is addressing symptoms. Condition is chronic and stable continue to monitor. (8) Establishing care with new doctor, encounter for: Code(s): Z76.89 - Persons encountering health services in other specified circumstances Category: Medical Plan Plan Patient was informed and verbally consented to the use of an ambient scribe for clinic note documentation during this visit. 1. Hypertension The patient was advised to use a home blood pressure monitor regularly. Stress management and increased physical activity were discussed as possible interventions. 2. Epilepsy Continues on lamotrigine with good control. Follow-up with neurologist as scheduled. 3. Allergic Rhinitis Continues daily Zyrtec. Symptom control is satisfactory. 4. Tennis Elbow Continue physical therapy. Current regimen is addressing symptoms. I reviewed with the patient the diagnosis of hypertension, discussing the potential contributing factors, including stress and lack of exercise. We focused on the importance of accurate and consistent home monitoring of blood pressure with a validated cuff. I advised him to return in one month with his blood pressure log for further evaluation. Management of his epilepsy with lamotrigine was noted to be effective and should be continued as prescribed by his neurologist. I reinforced the effectiveness of his current treatment regimen for allergic rhinitis and summarized the physical therapy being successful for tennis elbow. We discussed him potentially consulting urology for vasectomy, emphasizing the need for further discussion with a urologist to address his family planning concerns. Follow-up was suggested in alignment with his personal schedule and any symptom changes. Orders: Orders Vitamin D 25-OH Total Today Z00.00 - Encounter for general adult medical examination without abnormal findings Lipid Panel Today Z00.00 - Encounter for general adult medical examination without abnormal findings Liver Panel Today Z00.00 - Encounter for general adult medical examination without abnormal findings Hemoglobin A1c Today Z00.00 - Encounter for general adult medical examination without abnormal findings Complete Blood Count Auto Diff Today Z00.00 - Encounter for general adult medical examination without abnormal findings Comprehensive [place]. Panel Fast Today Z00.00 - Encounter for general adult medical examination without abnormal findings TSH reflex Free T4 Today Z00.00 - Encounter for general adult medical examination without abnormal findings PSA,Total (Free>4and<10) Today Z00.00 - Encounter for general adult medical examination without abnormal findings Referrals Urology Referral Z30.09 - Encounter for other general counseling and advice on contraception Patient Instructions: - Monitor your blood pressure at home every morning. Write down the numbers. - Continue taking your epilepsy medication as prescribed. - Keep taking Zyrtec daily for allergies. - Attend physical therapy sessions to manage tennis elbow. - Exercise regularly and manage stress. - Return for follow-up with blood pressure log in one month. - Schedule a consultation with urology regarding vasectomy. - Call or visit if you have dizziness, severe headaches, or blood pressure significantly higher than usual.
== END 2024-12-30 09:45 | disposition home or self-care (01) ==
LOC: HO.HMCSH 09:03
PROVIDERS: PCP Internal Medicine; Visit Provider Physician Assistant Medical
DX: Z00.00 Encounter for general adult medical examination without abnormal findings (principal); Z30.09 Encounter for other general counseling and advice on contraception; E66.3 Overweight; Z68.27 Body mass index [BMI] 27.0-27.9, adult; R03.0 Elevated blood-pressure reading, without diagnosis of hypertension; T78.40XA Allergy, unspecified, initial encounter; G40.909 Epilepsy, unspecified, not intractable, without status epilepticus; M77.10 Lateral epicondylitis, unspecified elbow; Z76.89 Persons encountering health services in other specified circumstances

== ENCOUNTER → 2024-12-30 09:03 | Outpatient (BNVA) | payer BC, SELFPAY | PROVIDERS: PCP Internal Medicine; Visit Provider Physician Assistant Medical | DX: Z00.00 Encounter for general adult medical examination without abnormal findings (principal); E66.3 Overweight; Z68.27 Body mass index [BMI] 27.0-27.9, adult; R03.0 Elevated blood-pressure reading, without diagnosis of hypertension; T78.40XA Allergy, unspecified, initial encounter; G40.909 Epilepsy, unspecified, not intractable, without status epilepticus; M77.10 Lateral epicondylitis, unspecified elbow | CPT/HCPCS: 96127 ==

== ENCOUNTER 2025-03-05 11:13 | Outpatient (AMB) | payer BC, SELFPAY ==
--- NOTE | 2025-03-05 11:15 | A.OFFVIS_ITS ---
Intake Visit Reasons: vasectomy consult Intake Note: New Patient is present for VASECTOMY CONSULT Urology Rx:FINASTERIDE Blood Thinners:NONE Allergies penicillin G (PENICILLIN G) Allergy (Unknown, Verified 03/05/25 11:15) HIVES penicillin V Allergy (Unknown, Verified 03/05/25 11:15) urticaria HPI Comments Details: Saroj is a very pleasant male. He is a patient of Dr. Cano. He is seen for the following urologic condition - anxiety about health - Vasectomy evaluation Vasectomy evaluation The patient presents for vasectomy consultation. He is currently He has fathered - 2 child, with a single partner. The youngest child is - three-month. His partner is aware and permissive for a vasectomy Current form of control is previously hormonal currently barrier. 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 Patient education has been provided via AUA video, via printed information, risks of failure, recovery time, bruising and potential pain syndrome have been stressed Discussion today focused on the presence of vasectomy and the risks, benefits and alternatives that are available. Vasectomy as intended as a permanent form of control. Printed information and literature was provided to the patient. Overall there is a one in 2500 failure rate. This can occur at any time after vasectomy. Risks were discussed highlighting hematoma, spermatocele, epididymal congestion, development of sperm antibodies, and development of chronic pain estimated between 1-5%. The procedure was reviewed in detail. Anatomical diagrams of the male genitalia were used to explain the location of the vas deferens. The vas deferens will be transected, the proximal end will be cauterized, a metal clip would be applied to separate the 2 vas deferens ends. It was explained the procedure will be done in the office and takes approximately 10-15 minutes. Less common problems that arise with vasectomy include hematoma, bleeding, allergic reaction to anesthetic, epididymal infection, epididymal congestion, scrotal discomfort, spermatic leak, spermatic granuloma and the possibility of antisperm antibodies. He understands these risks and wishes to proceed. Consent was signed at the office today. He also understands that it takes 12 weeks for sperm to fully clear the system. He will need to provide a semen sample at 12 weeks and if this is not clear a 2nd sample at 16 weeks. Medical clearance to stop using protection will only be provided if he satisfies published criteria for sperm clearance. [facility] Medical History (Updated 03/05/25 @ 17:06 by Mike Church MD) Establishing care with new doctor, encounter for Tennis elbow Squamous papilloma of soft palate Allergies Seizure disorder Overweight with body mass index (BMI) of 27 to 27.9 in adult Elevated blood pressure reading Annual physical exam Vasectomy evaluation Surgical History History of surgical procedure on mouth Family History Father BP (high blood pressure) Mother BP (high blood pressure) Social History Housing: House Alcohol intake: current Alcohol intake frequency: holidays/special occasions only Patient Tobacco Use Status: Never used Tobacco service: No Current occupational status: employed 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 Cognitive needs: No Hearing needs: No Vision needs: No Review of Systems Const Denies chills and Denies fever(s) Card Reports no additional complaints and Denies syncope Resp Denies cough GI Denies abdominal pain and Denies heartburn Reports as per HPI and Denies change in libido Neuro Denies syncope Psych Denies change in libido Endo Denies change in libido Physical Exam Const General: cooperative, healthy appearing, comfortable and no acute distress Orientation/consciousness: patient oriented x3 HEENT Face and sinus: Yes normal facial exam Mouth: moist mucous membranes Neck Neck: Yes normal visual inspection, Yes full ROM and Yes trachea midline Chest Chest palpation & inspection: normal inspection of the chest Resp Effort & Inspection: normal respiratory effort, able to speak in complete sentences and no respiratory distress GI Inspection: Yes normal to inspection Back/Spine/Pelvis Cervical Spine: normal cervical lordosis Thoracic/Lumbar Spine: thoracic and lumbar spine normal to inspection Skin General skin exam: no rashes or lesions noted Neuro General: patient oriented x3, gait normal, tone normal and moves all extremities Extrem General: Yes normal to inspection and Yes capillary refill normal Assessment & Plan Assessment & Plan (1) Anxiety about health: Code(s): R45.89 - Other symptoms and signs involving emotional state Category: Medical Plan Schedule vasectomy Medications: New diazepam Take medication after arrival at office 2 mg PO BID PRN 2 tabs 0RF anxiety 1 day R45.89 - Other symptoms and signs involving emotional state, Z30.09 - Encounter for other general counseling and advice on contraception tramadol 50 mg PO Q8H PRN 7 tabs 0RF pain N43.3 - Hydrocele, unspecified, Z30.09 - Encounter for other general counseling and advice on contraception Patient Instructions: This note is constructed using voice recognition software. While every effort has been made to ensure accuracy state historical society director errors may have been included. Imaging studies, laboratory and physical exam results were discussed and reviewed in detail. No major barriers to patient understanding were identified. An opportunity to ask questions regarding the treatment plan was provided. All questions were answered. The patient expressed understanding and agreement with the above treatment plan. The patient is aware they should contact our office by phone for worsening of their current condition or the appearance of new urologic symptoms. Compliance is encouraged with any medications and followup testing that is ordered. It is a privilege to participate in the urologic care of your patient. If you have any questions or concerns regarding treatment for the above conditions, or other urologic issues, please do not hesitate to contact me. The office telephone contact is [phone]. Sincerely, Dr Mike Church MD, [facility] - Urology Compassionate Specialist Care for the Genitourinary System Coding Level of Care Code New Pt Level 4 (15369) Diagnoses Anxiety about health R45.89
== END 2025-03-05 12:02 | disposition home or self-care (01) ==
LOC: HO.HUSH 11:14
PROVIDERS: PCP Internal Medicine; Visit Provider Urology
DX: R45.89 Other symptoms and signs involving emotional state (principal)
CPT/HCPCS: 99204

== ENCOUNTER 2025-07-02 09:08 | Outpatient (REF) | payer BC, SELFPAY ==
--- OUTSIDE RECORDS SUMMARY | 2025-07-02 09:58 | XMS_ITS | Clinical Summary ---
Author Organization [facility] Address [address] [place] [id number] Phone Care Team Providers Care Senior Financial Reporting Accountant Name Role Phone Tete Green MD Unavailable [phone] Keshawn Zavala MD Primary Care Provid er Medications albuterol (PROAIR HFA) 90 mcg/actuation inhaler Inhale 2 puffs into the lungs every 4 (four) hours as needed. 09/22/2015 Active lamoTRIgine (LAMICTAL) 200 MG tablet Orally Twice a day Active CETIRIZINE HCL (ZYRTEC ORAL) 1 tablet as needed Orally Once a day Active Active Problems No known active problems Social History Tobacco Use Types Packs/Day Years Used Date Smoking Tobacco: Never Assessed Education Answer Date Recorded Are you interested in more education? Not on joe e 01/04/2023 Are you concerned about learning? Not on file 01/04/2023 No 01/04/2023 No 01/04/2023 Digital Access Answer Date Recorded No 02/01/2023 No 02/01/2023 Reliable internet access at home? Not on file 02/01/2023 Device with a working camera? Not on file Sex and Gender Information Value Date Recorded Sex Assigned at Male 09/27/2023 12:13 PM EST Legal Sex Male 9:21 PM EDT Gender Identity Male 09/27/2023 12:13 PM EST Sexual Orientation Straight 09/27/2023 12 :13 PM EST Last Filed Vital Signs Vital Sign Reading Time Taken Comments Blood Pressure 138/102 05/24/2017 3:13 AM EDT Pulse 103 05/24/2017 3:13 AM EDT Temperature 36.6 C (97.9 F) 05/24/2017 3:13 AM EDT Respiratory Rate - - Oxygen Saturation - - Inhaled Oxygen Concentration - - Weight 81.9 kg (180 lb 9.6 oz) 05/24/2017 3:13 A M EDT Height 175.3 cm (5' 9 ) 05/24/2017 3:13 AM EDT Body Mass Index 26.67 05/24/2017 3:13 AM EDT Plan of Treatment Health Maintenance Due Date Last Done Comments LIPID PANEL 1981 DEPRESSION SCREENING 1993 SMOKING Hx and SMOKELESS TOBACCO SCREENING 1994 HEPATITIS C SCREENING 1999 HIV ONE-TIME SCREENING (18-6 5 YEARS) 1999 INFLUENZA VACCINE (#1) 2025 , 08/09/2020, 08/05/2019 COVID-19 VACCINE (2024-2 6 season) 2025 06/11/2022, 08/07/2021, 12/15/2020 Adult Td,Tdap Booster 12/31/2028 12/31/2018 HEPATITIS A VACCINES Aged Out No long er eligible based on patient's age to complete this topic HIB VACCINES Aged Out No longer eligi ble based on patient's age to complete this topic MENINGOCOCCAL VACCINES (ACWY) Aged Out No longer eligible based on patient's age to complete this topic MENINGOCOCCAL VACCINES (B) Aged Out N o longer eligible based on patient's age to complete this topic PNEUMOCOCCAL VACCINES (0-49 years) Aged Out No longer eligible b ased on patient's age to complete this topic Medical Devices Not on file Insurance [facility] [place] [facility] Care Teams Senior Financial Reporting Accountant Relationship Specialty Start Date End Date Keshawn Zavala MD [address] [place] [id number] PCP - General Internal Medicine 10/05/24 Tete Green MD [address] [place] [address], [address] [place] [address] [email or web address] Historical LMR Provider 06/25/17 Additional Source Comments The information contained in this document represents components of the legal health record. It is not the complete legal health record.[facility]
[2025-07-02 13:20] LABS: MANUAL DIFF FLAG NO
[2025-07-02 13:38] LABS: Hematocrit 45.7 % (42.0-52.0); Hemoglobin 16.2 g/dl (14.0-18.0); Imm Gran Abs Auto 0.01 X10*3/uL (0.00-0.03); Imm Gran Pct Auto 0.2 % (0.0-0.4); Lymphocytes Absolute Auto 2.5 X10*3/uL (1.2-4.9); Mean Corpuscular HGB Conc 35.4 g/dl (31.0-36.0); Mean Corpuscular Hemoglobin 31.8 pg (27.0-33.0); Mean Corpuscular Volume 89.6 fL (80.0-98.0); NRBC Abs Auto 0.000 X10*3/uL (0.0-0.012); NRBC Pct Auto 0.0 /100WBC (0.0-0.2); Platelet Count 182 X10*3/uL (160-400); Red Blood Count 5.10 X10*6/uL (4.60-5.80); White Blood Count 5.8 X10*3/uL (4.8-10.8)
[2025-07-02 14:20] LABS: Alanine Aminotransferase 36 U/L (0-40); Albumin Level 4.6 g/dL (3.5-5.0); Alkaline Phosphatase 64 U/L (39-117); Anion Gap 12 (12-20); Aspartate Amino Transferase 28 U/L (5-37); Blood Urea Nitrogen 18 mg/dL (9-16); Calcium 8.9 mg/dL (8.4-10.2); Carbon Dioxide 28 mmol/L (22-29); Chloride 105 mmol/L (96-108); Cholesterol 167 mg/dL (<200); Estimated Glomerular Filt Rate > 60; HDL Cholesterol 42 mg/dL (>40); Potassium 4.7 mmol/L (3.3-5.1); Sodium 140 mmol/L (135-145); Total Protein 7.1 g/dL (6.5-8.0); Triglycerides 90 mg/dL (<150)
[2025-07-02 15:00] LABS: PSA,Total (Free>4and<10) 1.22 ng/mL (0.00-4.00)
== END 2025-07-02 09:09 | disposition home or self-care (01) ==
LOC: HO.HMGCLDS 09:08
PROVIDERS: PCP Internal Medicine; Visit Provider Physician Assistant Medical
DX: Z00.00 Encounter for general adult medical examination without abnormal findings (principal); Z12.5 Encounter for screening for malignant neoplasm of prostate; Z13.6 Encounter for screening for cardiovascular disorders; Z13.1 Encounter for screening for diabetes mellitus; Z13.29 Encounter for screening for other suspected endocrine disorder; Z13.21 Encounter for screening for nutritional disorder
CPT/HCPCS: 36415; 80053; 80061; 80076; 82248; 82306; 83036; 84153; 84443; 85025

== ENCOUNTER 2025-08-11 14:55 | Outpatient (AMB) | payer BC, SELFPAY ==
--- NOTE | 2025-08-11 15:08 | A.OFFVIS_ITS ---
Intake Visit Reasons: vasectomy Intake Note: Reason for Visit: Vasectomy Urology Meds: None Blood Thinners: None Labs: None Imaging:None Last PVR: None [employer] Operation Required: No Accompanied by: Self / Same As Patient Allergies penicillin G (PENICILLIN G) Allergy (Unknown, Verified 08/11/25 15:13) HIVES penicillin V Allergy (Unknown, Verified 08/11/25 15:13) urticaria HPI Comments Details: Saroj is a very pleasant male. He is a patient of Dr. Cano. He is seen for the following urologic condition - anxiety about health - Vasectomy procedure Vasectomy procedure The patient presents for vasectomy procedure. He is currently He has fathered - 2 child, with a single partner. The youngest child is - three-month. His partner is aware and permissive for a vasectomy Current form of control is previously hormonal currently barrier. 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 [facility] Medical History Establishing care with new doctor, encounter for Tennis elbow Squamous papilloma of soft palate Allergies Seizure disorder Overweight with body mass index (BMI) of 27 to 27.9 in adult Elevated blood pressure reading Annual physical exam Vasectomy evaluation Surgical History History of surgical procedure on mouth Family History Father BP (high blood pressure) Mother BP (high blood pressure) Social History Housing: House Alcohol intake: current Alcohol intake frequency: holidays/special occasions only Patient Tobacco Use Status: Never used Tobacco service: No Current occupational status: employed 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 Cognitive needs: No Hearing needs: No Vision needs: No Review of Systems Const Denies chills and Denies fever(s) Card Reports no additional complaints and Denies syncope Resp Denies cough GI Denies abdominal pain and Denies heartburn Reports as per HPI and Denies change in libido Neuro Denies syncope Psych Denies change in libido Endo Denies change in libido Physical Exam Const General: cooperative, healthy appearing, comfortable and no acute distress Orientation/consciousness: patient oriented x3 HEENT Face and sinus: Yes normal facial exam Mouth: moist mucous membranes Neck Neck: Yes normal visual inspection, Yes full ROM and Yes trachea midline Chest Chest palpation & inspection: normal inspection of the chest Resp Effort & Inspection: normal respiratory effort, able to speak in complete sentences and no respiratory distress GI Inspection: Yes normal to inspection Back/Spine/Pelvis Cervical Spine: normal cervical lordosis Thoracic/Lumbar Spine: thoracic and lumbar spine normal to inspection Skin General skin exam: no rashes or lesions noted Neuro General: patient oriented x3, gait normal, tone normal and moves all extremities Extrem General: Yes normal to inspection and Yes capillary refill normal Office Procedures Vasectomy Details: Preoperative diagnosis: Anxiety regarding Postoperative diagnosis: Anxiety regarding unplanned Procedure: Bilateral vasectomy Informed consent had been completed. Preoperative and postoperative instructions were provided to the patient. The patient has transportation home identified at the completion of the procedure. Anti-anxiolytic prescription medication had been taken after consent verification and all questions answered. A limited amount of pain medication was also provided. The penis was elevated using a rubber band that was attached to the patient's shirt. Both vasa were palpated through the skin using a 3 finger technique and the penoscrotal junction was prepped with Betadine. After Betadine application the left vas was elevated using a 3 finger grasping technique. 1% lidocaine was used to create a subdermal bubble. Further anesthetic was then advanced using the 25-gauge needle along the vasa in a proximal fashion. Approximately 2 minutes were allowed to for local a nesthetic uptake. Using the sharp spreading instrument the scrotal skin was spread longitudinally in line with the vasa until the subdermal layer had been divided. The vasa was then elevated from the scrotum using a ring clamp. Care was taken to elevate the superior portion of the vasa by rotating the ring clamp in a caudad direction. The battery powered cautery was used to divide the vasal sheath in a longitudinal direction on the exposed vasa and to strip the vasal sheath from the vasa. The sharp spreading instrument was used to further expose the vas within the vasal sheath. A 2nd narrower ring clamp was placed on the exposed vas and used to lift the vas from the vasal sheath. The cautery was used to divide vasal attachments and allow full exposure of a small loop of vasa. The sharp spreading instrument was then used to create a tunnel under the vasa and spread to allow the blood vessels of the vasa to retract from the vasa. A mosquito clamp was placed on the proximal portion of the vas. The battery- powered cautery was used to make a partial division in the proximal vas and then inserted in order to cauterize the proximal end of the vas. This was then cut and allowed to retract into the vasal sheath. The mosquito was then used to twist the vasa 180 degrees creating a fascial interposition as the proximal portion of the vas retracted in the vasal sheath. Using a 4-0 chromic suture the fascial interposition was sutured closed. The distal portion of the vas was then cut in order to obtain a segment of vasa. An open distal vas is preferred for minimizing postprocedure pain. The vasa were allowed to retract back into the scrotum. A small snap was then used to approximate the skin edges and allow hemostasis without placement of a suture. A similar procedure was repeated on the right side. He tolerated the procedure well. Triple antibiotic was applied. A gauze was applied. An ice pack was applied to assist with minimizing swelling. Postoperative instructions were confirmed. He understands the need to continue to use control methods. A semen sample should be brought for inspection under the microscope in 10-12 weeks. CPT 09812 Vasectomy performed by: Mike Church Informed consent given: Yes Informed consent signed: Yes Time out checklist: patient, procedure, site marked/identified, positioning of patient, supplies available, allergies confirmed and team agrees on procedure Specimens: vas segments not sent to pathology 55425 - Vasectomy Office Meds lidocaine (PF) 10 mg/mL (1 %) injection solution Performing Provider: Mike Church MD [facility] Documented (not given) by: Mike Church MD on 08/15/25 19:41 Dose Route Admin Location Dispensed Lot Number Expiration Date NDC Nuclear Chemistry Technician 2 mL Infiltration mL Total Dispensed Waste n/a n/a Assessment & Plan Assessment & Plan (1) Anxiety about health: Code(s): R45.89 - Other symptoms and signs involving emotional state Category: Medical Plan Three-month follow-up semen analysis Orders: Orders AMB Vasectomy 08/11/25 R45.89 - Other symptoms and signs involving emotional state Medications: New lidocaine (PF) 2 mL Infiltration ONCE 2 mL 0RF R45.89 - Other symptoms and signs involving emotional state Patient Instructions: This note is constructed using voice recognition software. While every effort has been made to ensure accuracy legal department manager errors may have been included. Imaging studies, laboratory and physical exam results were discussed and reviewed in detail. No major barriers to patient understanding were identified. An opportunity to ask questions regarding the treatment plan was provided. All questions were answered. The patient expressed understanding and agreement with the above treatment plan. The patient is aware they should contact our office by phone for worsening of their current condition or the appearance of new urologic symptoms. Compliance is encouraged with any medications and followup testing that is ordered. It is a privilege to participate in the urologic care of your patient. If you have any questions or concerns regarding treatment for the above conditions, or other urologic issues, please do not hesitate to contact me. The office telephone contact is [phone]. Sincerely, Dr Mike Church MD, [facility] - Urology Compassionate Specialist Care for the Genitourinary System Coding Level of Care Code Procedure Only Diagnoses Anxiety about health R45.89 CPT Codes Office Procedure - CPT: 29189 - Vasectomy ([id number])
--- OUTSIDE RECORDS SUMMARY | 2025-08-11 17:50 | XMS_ITS | Clinical Summary ---
Author Organization [facility] Address [address] [place] [phone] Phone Care Team Providers Care Field Case Manager Name Role Phone Tete Green MD Unavailable [phone] Keshawn Zavala MD Primary Care Provid [...] topic Medical Devices Not on file Insurance [facility] [place] [facility] Care Teams Field Case Manager Relationship Specialty Start Date End Date Keshawn Zavala MD [address] [place] [id number] PCP - General Internal Medicine 10/05/24 Tete Green MD [address] [place] [address], [address] [place] [address] [email or web address] Historical LMR Provider 06/25/17 Additional Source Comments The information contained in this document represents components of the legal health record. It is not the complete legal health record.[facility]
== END 2025-08-11 16:09 | disposition home or self-care (01) ==
LOC: HO.HUSH 14:56
PROVIDERS: PCP Internal Medicine; Visit Provider Urology
DX: Z30.2 Encounter for sterilization (principal)
CPT/HCPCS: 55250

== ENCOUNTER → 2025-08-11 14:55 | Outpatient (BNVA) | payer BC, SELFPAY | PROVIDERS: PCP Internal Medicine; Visit Provider Urology | DX: R45.89 Other symptoms and signs involving emotional state (principal) | CPT/HCPCS: 55250 ==